=== PATIENT | female | born 1945 | race Caucasian/White ===

== ENCOUNTER 2018-01-30 09:46 | Observation (INO) ==
[2018-01-31 15:49] VITALS: BP 126/62
== END 2018-01-31 16:00 | disposition home or self-care (01) ==
LOC: EDBD → EDUNIT# → N.EDINP 09:46 → N.ED 09:46 → N.TELEN 12:44
PROVIDERS: ADMIT Internal Medicine Cardiovascular Disease; ATTEND Internal Medicine Cardiovascular Disease
PROC: CLCCHCL (ICD-10-PCS; 2018-01-30 15:45)